=== PATIENT | male | born 1980 | race Caucasian/White ===

== ENCOUNTER 2021-05-25 05:23 | Emergency (ER) | payer OTHER ==
[~2021-05-25] VITALS: Ht 182.9 cm; Wt 120.2 kg
[2021-05-25 08:43] LABS: BASOPHIL 0.5 % (0-2); EOSINOPHIL 0.8 % (0-5); HCT 49.5 % (42.0-52.0); HGB 16.9 g/dl (13.2-18.0); LYMPHOCYTE 27.6 % (15-48); MCH 30.5 pg (25.0-31.0); MCHC 34.1 g/dL (32.0-36.0); MCV 89.2 fL (78.0-100.0); MPV 10.1 fL (6.0-9.5); NEUTROPHIL 61.8 % (41-80); NRBC 0; PLT 241 K/uL (150-400); RBC 5.55 M/uL (4.70-6.00); RDW 12.5 % (11.5-14.0); WBC 9.9 K/uL (4.0-10.5)
[2021-05-25 08:57] LABS: ALBUMIN 4.6 g/dL (3.4-5.0); BILIRUBIN - TOTAL 0.7 mg/dL (0.2-1.0); CREATININE 1.12 mg/dL (0.67-1.17); GLOBULIN (CALCULATION) 3.5 g/dL; POTASSIUM 3.5 mmol/L (3.5-5.1); TOTAL PROTEIN 8.1 g/dL (6.4-8.2)
[2021-05-25] MEDS ORDERED: MEDROL 4MG DOSEP4 MG PO (10:12)
[2021-05-25] MEDS ORDERED: NORCO 5-325 TA1 EACH PO (10:12)
[2021-05-25] MEDS ORDERED: ROBAXIN750 MG PO (10:12)
== END 2021-05-25 10:43 | disposition home or self-care (01) ==
LOC: FER 05:23
PROVIDERS: Emergency Medicine
DX: M47.816 Spondylosis without myelopathy or radiculopathy, lumbar region (principal); M48.061 Spinal stenosis, lumbar region without neurogenic claudication; M51.36 Other intervertebral disc degeneration, lumbar region
CPT/HCPCS: 36415; 72131; 80053; 85025; 86140; J1170; J1885; J2405